=== PATIENT | male | born 1980 | race Caucasian/White ===

== ENCOUNTER 2020-11-05 09:57 | Emergency (ER) | payer MEDICAID ==
[~2020-11-05] VITALS: Ht 177.8 cm; Wt 75.7 kg
[2020-11-05 10:17] VITALS: BP 127/80
--- NOTE | 2020-11-05 10:48 | NUR ---
FITTING ROOM ATTENDANT: PT AMBULATORY TO ROOM FROM LOBBY AT THIS TIME
--- NOTE | 2020-11-05 10:55 | NUR ---
PT C/O LEFT UPPER THIGH RASH X2 WEEKS, DENIES USE OF OTC MEDS. USES SOAP AND WATER TO KEEP CLEAN.
== END 2020-11-05 11:47 | disposition home or self-care (01) ==
LOC: ED 11:40
DX: L73.9 Follicular disorder, unspecified (principal); M79.642 Pain in left hand
CPT/HCPCS: 99283

== ENCOUNTER 2021-02-08 15:12 | Emergency (ER) | payer MEDICAID ==
[~2021-02-08] VITALS: Ht 177.8 cm; Wt 73.8 kg
[2021-02-08 15:23] VITALS: BP 117/67
--- NOTE | 2021-02-08 19:31 | NUR ---
project control manager note: Pt to room from lobby, ambulatory with steady gait.
== END 2021-02-08 20:59 | disposition home or self-care (01) ==
LOC: ED 20:50
DX: K12.0 Recurrent oral aphthae (principal)
CPT/HCPCS: 36415; 86592; 87806; 99283; G0475

== ENCOUNTER 2021-02-26 11:15 | Emergency (ER) | payer MEDICAID ==
[~2021-02-26] VITALS: Ht 165.1 cm; Wt 71.0 kg
[2021-02-26 11:18] VITALS: BP 142/82
[2021-02-26] MEDS ORDERED: BACITRACIN ZINC OINT 500U/GM, 0.9 GM ONE (11:55)
== END 2021-02-26 12:37 | disposition home or self-care (01) ==
LOC: ED 12:31
DX: G89.11 Acute pain due to trauma (principal); N48.22 Cellulitis of corpus cavernosum and penis; R00.0 Tachycardia, unspecified
CPT/HCPCS: 99283